=== PATIENT | female | born 1990 | race Caucasian/White ===

== ENCOUNTER 2020-08-12 19:57 | Inpatient (IN) | payer OTHER ==
[2020-08-12 21:21] LABS: HCT 31.9 % (37.0-47.0); HGB 11.2 g/dl (12.5-16.0); MCH 33.3 pg (25.0-31.0); MCHC 35.1 g/dL (32.0-36.0); MCV 94.9 fL (78.0-100.0); MPV 12.4 fL (6.0-9.5); RBC 3.36 M/uL (4.20-5.40); RDW 13.7 % (11.5-14.0); WBC 10.4 K/uL (4.0-10.5)
[2020-08-12 21:22] LABS: BILIRUBIN NEGATIVE (NEGATIVE); BLOOD NEGATIVE Ery/uL (NEGATIVE); CLARITY CLEAR (CLEAR); COLOR YELLOW (YELLOW); GLUCOSE (U) NORMAL (NORMAL); LEUKOCYTES NEGATIVE Leu/uL (NEGATIVE); NITRITE NEGATIVE (NEGATIVE); PROTEIN NEGATIVE (NEGATIVE); SPECIFIC GRAVITY >=1.030 (1.001-1.030); UROBILINOGEN 0.2 mg/dL (0.2-1.0)
[2020-08-14 06:23] LABS: HCT 22.2 % (37.0-47.0); MCH 33.3 pg (25.0-31.0); MCHC 34.7 g/dL (32.0-36.0); MCV 96.1 fL (78.0-100.0); MPV 10.8 fL (6.0-9.5); RBC 2.31 M/uL (4.20-5.40); RDW 13.9 % (11.5-14.0); WBC 13.9 K/uL (4.0-10.5)
[2020-08-14 06:32] LABS: HGB 7.7 g/dl (12.5-16.0)
== END 2020-08-15 13:30 | disposition home or self-care (01) | DRG 787 ==
LOC: FOD 19:57 → FOB 19:58
PROVIDERS: ADMIT Obstetrics & Gynecology
PROC: 4A1HX4Z Monitoring of Products of Conception, Cardiac Electrical Activity, External Approach (ICD-10-PCS; principal; 2020-08-12)
PROC: 3E0P7VZ Introduction of Hormone into Female Reproductive, Via Natural or Artificial Opening (ICD-10-PCS; 2020-08-12)
PROC: 10D00Z1 Extraction of Products of Conception, Low, Open Approach (ICD-10-PCS; 2020-08-13)
PROC: 0KQM0ZZ Repair Perineum Muscle, Open Approach (ICD-10-PCS; 2020-08-13)
PROC: 10E0XZZ Delivery of Products of Conception, External Approach (ICD-10-PCS; 2020-08-13)
PROC: 3E0234Z Introduction of Serum, Toxoid and Vaccine into Muscle, Percutaneous Approach (ICD-10-PCS; 2020-08-14)
DX: O36.5932 Maternal care for other known or suspected poor fetal growth, third trimester, fetus 2 (principal); O10.92 Unspecified pre-existing hypertension complicating childbirth; D62 Acute posthemorrhagic anemia; Z37.2 Twins, both liveborn; O30.043 Twin pregnancy, dichorionic/diamniotic, third trimester; Z3A.37 37 weeks gestation of pregnancy; O26.893 Other specified pregnancy related conditions, third trimester; O99.214 Obesity complicating childbirth; E66.9 Obesity, unspecified; O70.1 Second degree perineal laceration during delivery; O76 Abnormality in fetal heart rate and rhythm complicating labor and delivery; Z20.822 Contact with and (suspected) exposure to COVID-19; Z67.41 Type O blood, Rh negative; O99.02 Anemia complicating childbirth; T80.89XA Other complications following infusion, transfusion and therapeutic injection, initial encounter; O62.2 Other uterine inertia
CPT/HCPCS: 36415; 81003; 84112; J0456; J0690; J1885; J2250; J2300; J2405; J2790; J2916; J3010; J7050; J7120; U0002